=== PATIENT | male | born 1965 | race Caucasian/White ===

== ENCOUNTER 2016-11-01 21:28 | Emergency (ER) | payer OTHER ==
[~2016-11-01] VITALS: Ht 182.9 cm; Wt 87.7 kg
[2016-11-01 22:43] LABS: HEMATOCRIT 41.6 % (38.0-50.0); MCH 28.6 PG (29.0-34.0); MCHC 34.1 G/DL (30.0-36.0); MCV 83.7 FL (86-99); MEAN PLAT.VOLUME 8.9 uM^3 (9.0-12.4); PLATELET COUNT 193 K/uL (156-360); RBC DIS.WIDTH-CV 12.4 % (11.8-14.6); RBC DIS.WIDTH-SD 37.2 % (39-53); RED BLOOD COUNT 4.97 M/uL (4.00-5.50); WHITE BLOOD COUNT 7.4 K/uL (4.1-10.2)
[2016-11-01 22:54] LABS: CHLORIDE 104 mEq/L (99-109); POTASSIUM 3.8 mEq/L (3.7-5.4); SODIUM 136 mEq/L (136-147)
[2016-11-01 22:55] LABS: GLUCOSE 121 mg/dL (70-99)
[2016-11-01] MEDS ORDERED: DOXYCYCLINE HY100 M3 PO (22:55)
[2016-11-01 22:57] LABS: ANION GAP 7 MEQ/L (2-14)
[2016-11-01] MEDS ORDERED: NAPROXEN500 MG PO (22:58)
[2016-11-01 22:59] LABS: GFR ESTIMATE (CALCULATED) > 59 mL/min/
[2016-11-01 23:00] LABS: UREA NITROGEN (BUN) 18 mg/dL (9-23)
[2016-11-01 23:20] VITALS: BP 134/93
== END 2016-11-01 23:21 | disposition home or self-care (01) ==
LOC: EME 21:28 → EXP 21:28
PROVIDERS: Physician Assistant
DX: W57.XXXA Bitten or stung by nonvenomous insect and other nonvenomous arthropods, initial encounter (principal); L03.113 Cellulitis of right upper limb
CPT/HCPCS: 80048; 83605; 85027; 86618; 87040; 99281; 99285; J0696; J1885; J7030; J7050